=== PATIENT | male | born 2000 | race Hispanic/Latino ===

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

== ENCOUNTER 2022-01-29 13:09 | Emergency (ER) | payer OTHER | END 2022-01-29 14:59 | disposition home or self-care (01) | LOC: ERS 13:09 | DX: M25.562 Pain in left knee (principal) ==